=== PATIENT | male | born 1980 | race Two or more races ===

== ENCOUNTER 2020-11-25 19:41 | Emergency (ER) | payer OTHER ==
[~2020-11-25] VITALS: Ht 167.6 cm; Wt 90.0 kg
[2020-11-25] MEDS ORDERED: ASPIRIN 81 MG TABLET CHEW PO ONE (20:00)
[2020-11-25 20:17] LABS: BASOPHILS % (AUTO) 0 % (0-1); EOSINOPHILS % (AUTO) 1 % (1-7); LYMPHOCYTES % (AUTO) 31 % (22-44); MEAN CORPUSCULAR HEMOGLOBIN 30.5 pg (27.5-34.5); MEAN CORPUSCULAR HGB CONC 34.8 g/dL (33.2-36.2); MEAN PLATELET VOLUME 7.4 fL (7.4-10.4); MONOCYTES % (AUTO) 9 % (2-9); NEUTROPHILS % (AUTO) 59 % (42-75); PLATELET COUNT 335 x10^3/uL (130-400); RED BLOOD COUNT 5.21 x10^6/uL (4.38-5.82); RED CELL DISTRIBUTION WIDTH 14.3 % (9.4-14.8)
[2020-11-25 20:28] LABS: ALBUMIN 3.4 g/dL (3.4-5.0); ANION GAP 9 mmol/L (5-15); CALCIUM 8.5 mg/dL (8.5-10.1); CHLORIDE 105 mmol/L (98-107)
[2020-11-25 20:33] LABS: CREATININE 0.82 mg/dL (0.7-1.3); TROPONIN I < 0.015 ng/mL (0.000-0.045)
--- NOTE | 2020-11-25 22:24 | NUR ---
squad sergeant: patient to room from lobby.
--- NOTE | 2020-11-25 22:38 | NUR ---
MD AT BEDSIDE TO DISCUSS POC
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
[2020-11-25 22:49] VITALS: BP 136/83
== END 2020-11-25 22:51 | disposition home or self-care (01) ==
LOC: ED 20:00
DX: R07.89 Other chest pain (principal); F15.10 Other stimulant abuse, uncomplicated; R00.0 Tachycardia, unspecified; E11.9 Type 2 diabetes mellitus without complications; F17.200 Nicotine dependence, unspecified, uncomplicated
CPT/HCPCS: 36415; 71045; 80048; 82040; 84484; 85025; 93005; 99285

== ENCOUNTER 2020-12-28 11:37 | Emergency (ER) | payer SELFPAY ==
[~2020-12-28] VITALS: Ht 167.6 cm; Wt 88.0 kg
[~2020-12-28 11:37] MED LIST: OMNIPAQUE 350 MG/ML, 100ML BOTTLE ONE
--- NOTE | 2020-12-28 11:48 | NUR ---
PT BROUGHT IN BY [facility] FROM HOME FOR STROKE LIKE SYMPTOMS. CODE NEURO PAGED OSTEOPATHY DOCTOR. PER REPORT PATIENT EXPERIENCED LEFT SIDED WEAKNESS AT 1030 HOWEVER ALL SYMPTOMS RESOLVED OSTEOPATHY DOCTOR. THE PATIENT ARRIEVED ALERT AND ORIENTED. SHERWIN COTO AT BEDSIDE FOR EVALUTION.
--- NOTE | 2020-12-28 11:54 | NUR ---
1130 Code neuro paged [id number] pt arrived and went to ct
[2020-12-28] MEDS ORDERED: SODIUM CHLORIDE FLUSH 10ML SYR IVF ONE (12:00)
[2020-12-28] MEDS ORDERED: PLEASE ENTER HEIGHT AND WEIGHT MC SCH (12:00)
[2020-12-28 12:16] LABS: BASOPHILS % (AUTO) 1 % (0-1); EOSINOPHILS % (AUTO) 1 % (1-7); LYMPHOCYTES % (AUTO) 22 % (22-44); MEAN CORPUSCULAR HEMOGLOBIN 31.3 pg (27.5-34.5); MEAN CORPUSCULAR HGB CONC 35.5 g/dL (33.2-36.2); MEAN PLATELET VOLUME 7.5 fL (7.4-10.4); MONOCYTES % (AUTO) 8 % (2-9); NEUTROPHILS % (AUTO) 70 % (42-75); PLATELET COUNT 294 x10^3/uL (130-400); RED BLOOD COUNT 5.19 x10^6/uL (4.38-5.82); RED CELL DISTRIBUTION WIDTH 14.2 % (9.4-14.8)
[2020-12-28 12:28] LABS: INTERNATIONAL NORMALIZED RATIO 0.95 (0.93-1.1); PROTHROMBIN TIME 10.2 Seconds (9.6-11.5)
[2020-12-28 12:30] LABS: TROPONIN I < 0.015 ng/mL (0.000-0.045)
--- NOTE | 2020-12-28 12:43 | NUR ---
PT resting in bed, no neuro changes. vss.
--- NOTE | 2020-12-28 13:04 | NUR ---
SHERWIN Mckinney at bedside to discuss POC
[2020-12-28 13:19] VITALS: BP 132/79
== END 2020-12-28 13:22 | disposition home or self-care (01) ==
LOC: ED 13:00
DX: M54.12 Radiculopathy, cervical region (principal); R07.89 Other chest pain; R53.1 Weakness; E11.9 Type 2 diabetes mellitus without complications; F17.200 Nicotine dependence, unspecified, uncomplicated
CPT/HCPCS: 36415; 70450; 70496; 70498; 71045; 80047; 80320; 83690; 83735; 83880; 84484; 85025; 85610; 85730; 93005; 99285; Q9967; G0480

== ENCOUNTER 2020-12-29 01:39 | Emergency (ER) | payer SELFPAY ==
[~2020-12-29] VITALS: Ht 167.6 cm; Wt 92.3 kg
--- NOTE | 2020-12-29 01:43 | NUR ---
[id number]
[2020-12-29] MEDS ORDERED: MAALOX/HYOSCYAMINE/LIDOCAINE 45 ML BTL ONE (03:15)
[2020-12-29] MEDS ORDERED: ONDANSETRON 2MG/ML, 2ML ONE (03:15)
[2020-12-29] MEDS ORDERED: KETOROLAC 30 MG/1 ML ONE (03:15)
[2020-12-29 03:23] LABS: BASOPHILS % (AUTO) 1 % (0-1); EOSINOPHILS % (AUTO) 1 % (1-7); LYMPHOCYTES % (AUTO) 33 % (22-44); MEAN CORPUSCULAR HEMOGLOBIN 30.3 pg (27.5-34.5); MEAN CORPUSCULAR HGB CONC 34.8 g/dL (33.2-36.2); MEAN PLATELET VOLUME 7.8 fL (7.4-10.4); MONOCYTES % (AUTO) 8 % (2-9); NEUTROPHILS % (AUTO) 58 % (42-75); PLATELET COUNT 291 x10^3/uL (130-400); RED BLOOD COUNT 5.46 x10^6/uL (4.38-5.82)
[2020-12-29] MEDS ORDERED: ONDANSETRON 2MG/ML, 2ML IVPush ONE (03:30)
[2020-12-29] MEDS ORDERED: MAALOX/HYOSCYAMINE/LIDOCAINE 45 ML BTL PO ONE (03:30)
[2020-12-29] MEDS ORDERED: KETOROLAC 30 MG/1 ML IVPush ONE (03:30)
[2020-12-29 03:31] LABS: ALANINE AMINOTRANSFERASE 41 U/L (12-78); ALBUMIN 3.3 g/dL (3.4-5.0); ANION GAP 8 mmol/L (5-15); CALCIUM 8.5 mg/dL (8.5-10.1); CHLORIDE 104 mmol/L (98-107)
[2020-12-29 03:36] LABS: ALKALINE PHOSPHATASE 102 U/L (45-117); BILIRUBIN,TOTAL 0.4 mg/dL (0.2-1.0); CREATININE 1.01 mg/dL (0.7-1.3); TOTAL PROTEIN 7.3 g/dL (6.4-8.2); TROPONIN I < 0.015 ng/mL (0.000-0.045)
[2020-12-29 04:43] VITALS: BP 135/88
== END 2020-12-29 04:44 | disposition home or self-care (01) ==
LOC: ED 02:00
DX: R07.89 Other chest pain (principal); F10.10 Alcohol abuse, uncomplicated; F15.10 Other stimulant abuse, uncomplicated; E11.9 Type 2 diabetes mellitus without complications; F17.200 Nicotine dependence, unspecified, uncomplicated; Y90.9 Presence of alcohol in blood, level not specified
CPT/HCPCS: 36415; 71045; 80053; 80320; 84484; 85025; 93005; 96374; 96375; 99285; J1885; J2405; G0480

== ENCOUNTER 2020-12-30 14:54 | Emergency (ER) | payer SELFPAY ==
[~2020-12-30] VITALS: Ht 167.6 cm; Wt 92.7 kg
[2020-12-30 14:58] VITALS: BP 134/76
[2020-12-30] MEDS ORDERED: ASPIRIN 81 MG TABLET CHEW PO ONE (15:30)
[2020-12-30 16:30] LABS: BASOPHILS % (AUTO) 0 % (0-1); EOSINOPHILS % (AUTO) 0 % (1-7); LYMPHOCYTES % (AUTO) 13 % (22-44); MEAN CORPUSCULAR HEMOGLOBIN 30.6 pg (27.5-34.5); MEAN CORPUSCULAR HGB CONC 34.6 g/dL (33.2-36.2); MEAN PLATELET VOLUME 7.9 fL (7.4-10.4); MONOCYTES % (AUTO) 8 % (2-9); NEUTROPHILS % (AUTO) 78 % (42-75); PLATELET COUNT 294 x10^3/uL (130-400); RED BLOOD COUNT 5.22 x10^6/uL (4.38-5.82); RED CELL DISTRIBUTION WIDTH 14.1 % (9.4-14.8)
[2020-12-30 16:31] LABS: ALBUMIN 3.1 g/dL (3.4-5.0); ANION GAP 2 mmol/L (5-15); CALCIUM 8.3 mg/dL (8.5-10.1); CHLORIDE 104 mmol/L (98-107)
[2020-12-30 16:38] LABS: ALANINE AMINOTRANSFERASE 31 U/L (12-78); ALKALINE PHOSPHATASE 85 U/L (45-117); BILIRUBIN,TOTAL 0.7 mg/dL (0.2-1.0); CREATININE 0.92 mg/dL (0.7-1.3); TOTAL PROTEIN 7.3 g/dL (6.4-8.2); TROPONIN I < 0.015 ng/mL (0.000-0.045)
--- NOTE | 2020-12-30 18:45 | NUR ---
not in lobby
--- NOTE | 2020-12-30 19:00 | NUR ---
pt not in lobby
--- NOTE | 2020-12-30 19:37 | NUR ---
not in lobby
== END 2020-12-30 19:39 | disposition left against medical advice (07) ==
LOC: ED 14:59
DX: R07.89 Other chest pain (principal)
CPT/HCPCS: 36415; 71045; 80053; 84484; 85025; 93005; 99285

== ENCOUNTER 2020-12-30 23:33 | Emergency (ER) | payer SELFPAY ==
[~2020-12-30] VITALS: Ht 167.6 cm; Wt 90.0 kg
[2020-12-30 23:39] VITALS: BP 106/66
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
--- NOTE | 2020-12-30 23:47 | NUR ---
ERP TO BEDSIDE
--- NOTE | 2020-12-31 00:10 | NUR ---
PT REQ "PAIN PILLS AND NAUSEA PILLS AND NERVE PILLS TO HELP KEEP GOING" PT INFORMED THAT ERP STATED PT WILL NOT BE DC WITH HOME MEDS AT THIS TIME.
--- NOTE | 2020-12-31 00:15 | NUR ---
PT AMBULATES WITH STEADY GAIT NO ASSIST REQ, VERBALIZES THAT HE WILL CALL A TAXI TO TAKE HIM HOME
== END 2020-12-31 00:19 | disposition home or self-care (01) ==
LOC: ED 23:38
DX: F10.120 Alcohol abuse with intoxication, uncomplicated (principal); R07.89 Other chest pain; E11.9 Type 2 diabetes mellitus without complications; F17.200 Nicotine dependence, unspecified, uncomplicated; Z72.9 Problem related to lifestyle, unspecified
CPT/HCPCS: 93005; 99283